=== PATIENT | male | born 1965 | race African-American/Black ===

== ENCOUNTER 2021-10-16 04:38 | Day surgery (SDC) | payer OTHER ==
[2021-10-13 15:18] VITALS: BMI 30.4
[2021-10-16 09:44] VITALS: TEMP 97.7
[2021-10-16 12:22] VITALS: BP 131/57; PULSE 62
== END 2021-10-16 11:00 | disposition home or self-care (01) ==
LOC: JASU-ENDO 04:38
PROVIDERS: ATTEND Internal Medicine Gastroenterology
PROC: 0DJD8ZZ Inspection of Lower Intestinal Tract, Via Natural or Artificial Opening Endoscopic (ICD-10-PCS; principal; 2021-10-16 09:14)
DX: Z12.11 Encounter for screening for malignant neoplasm of colon (principal)